=== PATIENT | female | born 1965 | race Caucasian/White ===

== ENCOUNTER 2016-09-06 09:01 | Emergency (ER) | payer SELFPAY ==
[2016-09-06 09:26] VITALS: TEMP 97.7
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
--- NOTE | 2016-09-06 09:46 | RAD ---
EXAM DESCRIPTION: Elbow,Left 3 Views CLINICAL HISTORY: 51 years Female, fall onto elbow with pain COMPARISON: None. FINDINGS: There is a severely displaced and angulated left radial neck fracture. The radial head is rotated posteriorly approximately 90 degrees with dislocation of the radiocapitellar joint. A few tiny bone fragments adjacent to the coronoid likely represent fracture fragments arising from the tip of the coronoid process. The distal humerus is intact. A left elbow joint effusion is noted. IMPRESSION: Severely displaced and angulated left radial neck fracture as detailed above with dislocation of the radiocapitellar joint. Tiny fracture arising from the tip of the coronoid process. Electronically signed by: Lauro Cantu MD 09/06/2016 9:44 AM CDT Workstation: [id number]
[2016-09-06] MEDS ORDERED: HYDROCOD/APAP 10/325 (ER DISP) # 3 tablets PO ONE (09:59)
[2016-09-06] MEDS ORDERED: HYDROcodone 10MG/APAP 325MG 1 EA TAB PO ONE (10:04)
[2016-09-06] MEDS ORDERED: CHLORHEXIDINE GLUCONATE 4 % 15 ML UD TOP ONE (10:24)
[2016-09-06] MEDS ORDERED: TETANUS,DIPHTHERIA,PERTUSSIS 1 EA SYG IM ONE (10:38)
[2016-09-06 11:04] VITALS: BP 104/80; O2SAT 98
== END 2016-09-06 11:02 | disposition home or self-care (01) ==
LOC: ER 09:01
DX: S52.132A Displaced fracture of neck of left radius, initial encounter for closed fracture (principal); S01.412A Laceration without foreign body of left cheek and temporomandibular area, initial encounter; Z88.2 Allergy status to sulfonamides; Z23 Encounter for immunization; W17.89XA Other fall from one level to another, initial encounter